=== PATIENT | male | born 1990 | race Caucasian/White ===

== ENCOUNTER 2020-01-05 07:55 | Day surgery (SDC) | payer BC ==
[~2020-01-05] VITALS: Ht 170.2 cm; Wt 65.0 kg
[2020-01-05] MEDS ORDERED: ONDANSETRON 2MG/ML, 2ML IVPush ONE (08:30)
[2020-01-05] MEDS ORDERED: SODIUM CHLORIDE 0.9% 1,000ML IVBOLUS ONE (08:30)
[2020-01-05] MEDS ORDERED: MORPHINE SULFATE 4 MG/ML, 1ML ONE ×2 (08:42→10:13)
[2020-01-05] MEDS ORDERED: ONDANSETRON 2MG/ML, 2ML ONE ×3 (08:42→11:23)
[2020-01-05] MEDS: MORPHINE SULFATE 4 MG/ML, 1ML IVPush PRN ×2 (08:44→10:18)
--- NOTE | 2020-01-05 09:02 | NUR ---
PT MOVED TO 18 AT THIS TIME. NS INFUSING. VSS. PT'S AOX4. RESPS EVEN AND UNLABORED.
--- NOTE | 2020-01-05 09:02 | NUR ---
PT WITH C/O RLQ PAIN RATED 9/10, REPRODUCABLE. PT C/O N/V. INITIALLY HAD C/O COUGH, NOW DENIES. PT TO RM 18
[2020-01-05 09:10] LABS: ALBUMIN 4.6 g/dL (3.4-5.0); ANION GAP 7 mmol/L (5-15); CALCIUM 9.4 mg/dL (8.5-10.1); CHLORIDE 104 mmol/L (98-107)
[2020-01-05 09:14] LABS: ALANINE AMINOTRANSFERASE 22 U/L (12-78); ALKALINE PHOSPHATASE 94 U/L (45-117); BILIRUBIN,TOTAL 1.1 mg/dL (0.2-1.0); CREATININE 1.23 mg/dL (0.7-1.3)
--- NOTE | 2020-01-05 09:18 | NUR ---
lab called and will be redrawing pt
[2020-01-05 09:32] LABS: MICROSCOPIC INDICATED
[2020-01-05] MEDS ORDERED: OMNIPAQUE 350 MG/ML, 100ML BOTTLE ONE (09:37)
[2020-01-05 09:39] LABS: CULTURE INDICATED? NO
--- NOTE | 2020-01-05 09:49 | NUR ---
LAB AT BEDSIDE TO RE-DRAW AT THIS TIME.
[2020-01-05 09:56] LABS: MEAN CORPUSCULAR HEMOGLOBIN 30.1 pg (27.5-34.5); MEAN CORPUSCULAR HGB CONC 34.1 g/dL (33.2-36.2); MEAN CORPUSCULAR VOLUME 88.2 fL (81-97); MEAN PLATELET VOLUME 6.8 fL (7.4-10.4); PLATELET COUNT 261 x10^3/uL (130-400); RED BLOOD COUNT 4.73 x10^6/uL (4.38-5.82); RED CELL DISTRIBUTION WIDTH 12.9 % (9.4-14.8)
[2020-01-05] MEDS ORDERED: CEFOTETAN PMX 1GM/50ML 50 ML IV ONE (10:00)
--- NOTE | 2020-01-05 10:07 | NUR ---
lillie rodriguez spoke with dr batista
[2020-01-05 10:09] LABS: MD YES
[2020-01-05 10:11] LABS: BAND#(MANUAL) 1.07 x10^3/uL; BANDS%(MANUAL) 6 % (0-7); LYMPHS% (MANUAL) 5 % (22-44); MONOS#(MANUAL) 0.54 x10^3/uL (0.3-2.7); MONOS% (MANUAL) 3 % (2-9); SEG#(MANUAL) 15.39 x10^3/uL (1.8-6.8); SEGS% (MANUAL) 86 % (42-75)
[2020-01-05 10:12] LABS: <PLATELET ESTIMATE> ADEQUATE; <PLT MORPHOLOGY> NORMAL PLT MORPH
[2020-01-05] MEDS ORDERED: CEFOTETAN PMX 1GM/50ML 50 ML ONE (10:13)
--- NOTE | 2020-01-05 10:22 | NUR ---
PT MEDICATED PER EMAR. PT TOLERATED WELL. ABX INFUSING AT THIS TIME. NO BC NEEDED PER PA.
--- NOTE | 2020-01-05 10:28 | NUR ---
WARM BLANCKET GIVEN AT THIS TIME. URINAL AT BEDSIDE PER REQUEST.
[2020-01-05 10:31] LABS: <RBC MORPHOLOGY> NORMAL
--- NOTE | 2020-01-05 11:10 | NUR ---
REPORT GIVEN TO EMI CORE ANALYST. ALL QUESTIONS ANSWERED.
[2020-01-05] MEDS ORDERED: BUPIVACAINE/PF-EPI 0.5% 1:200K ONE (11:18)
[2020-01-05] MEDS ORDERED: MIDAZOLAM 1 MG/ML, 2ML ONE (11:19)
[2020-01-05] MEDS ORDERED: PROPOFOL 50 ML ONE (11:19)
[2020-01-05] MEDS ORDERED: FENTANYL PF 250 MCG/5ML ONE (11:20)
[2020-01-05] MEDS ORDERED: KETOROLAC 30 MG/1 ML ONE (11:23)
[2020-01-05] MEDS ORDERED: ROCURONIUM 10MG/ML,5ML ONE (11:30)
[2020-01-05] MEDS ORDERED: SUCCINYLCHOLINE 20 MG/ML, 10ML ONE (11:30)
[2020-01-05] MEDS ORDERED: BUPIVACAINE/PF-EPI 0.5% 1:200K INFIL ONE (11:45)
[2020-01-05] MEDS ORDERED: MORPHINE SULFATE 4 MG/ML, 1ML IVPush PRN (12:00)
[2020-01-05] MEDS ORDERED: DIPHENHYDRAMINE 50 MG/ML, 1ML IVPush PRN (12:00)
[2020-01-05] MEDS ORDERED: DIAZEPAM 5 MG/ML, 2ML IVPush PRN (12:00)
[2020-01-05] MEDS ORDERED: PROMETHAZINE 25 MG/ML, 1ML IV PRN (12:00)
[2020-01-05] MEDS ORDERED: EPHEDRINE 50 MG/ML, 1ML IM PRN (12:00)
[2020-01-05] MEDS ORDERED: EPHEDRINE 50 MG/ML, 1ML IVPush PRN (12:00)
[2020-01-05] MEDS ORDERED: ONDANSETRON ODT 8 MG PO PRN (12:00)
[2020-01-05] MEDS ORDERED: ONDANSETRON 2MG/ML, 2ML IV PRN (12:00)
[2020-01-05] MEDS ORDERED: FENTANYL PF 100 MCG/2ML IV PRN (12:00)
[2020-01-05] MEDS ORDERED: OXYcodone 5 MG/5 ML ORAL.SOL UDC PO PRN (12:00)
[2020-01-05] MEDS ORDERED: MEPERIDINE/PF 25MG/ML,1ML IVPush PRN (12:00)
[2020-01-05] MEDS ORDERED: MIDAZOLAM 1 MG/ML, 2ML IV PRN (12:00)
[2020-01-05] MEDS ORDERED: OXYcodone 5 MG/5 ML ORAL.SOL UDC ONE (13:53)
[2020-01-05 14:46] VITALS: BP 93/47
[2020-01-05] MEDS ORDERED: LACTATED RINGERS 1,000 ML IV SCH (15:00)
[2020-01-05] MEDS ORDERED: HYDROcodone/APAP 5/325 TABLET PO PRN (15:00)
[2020-01-05 16:25] VITALS: BP 90/48
[2020-01-05] MEDS ORDERED: HYDR-3240 PO (16:43)
[2020-01-05 17:27] VITALS: BP 85/51
== END 2020-01-05 18:23 | disposition home or self-care (01) ==
LOC: ED 09:18 → EDSTATUS 10:12 → EDIP 10:37 → UNDOADMOB 10:37 → EDIP 14:25 → 4NE 14:25 → UNDODISOB 18:19 → ED 18:23
PROVIDERS: ATTEND Emergency Medicine
DX: K35.80 Unspecified acute appendicitis (principal)
CPT/HCPCS: 36415; 44970; 74177; 80053; 81001; 85025; 88304; 96365; 96375; 96376; 99284; J0330; J1885; J2250; J2270; J2405; J2704; J3010; J3490; J7030; J7120; Q9967; G0378

== ENCOUNTER 2021-02-09 17:59 | Emergency (ER) | payer BC ==
[~2021-02-09] VITALS: Ht 167.6 cm; Wt 61.8 kg
[~2021-02-09 17:59] MED LIST: HYDR-2214 PO
--- NOTE | 2021-02-09 18:15 | NUR ---
triage: chest pain 6 of 10 that comes and goes, began today at lunch.
--- NOTE | 2021-02-09 18:36 | NUR ---
PT C/O OF SHARP CHEST PAIN STARTING AROUND 1300. PAIN WILL COME AND GO SO PT SAUGHT TO SEEK MEDICAL CARE. DENIES RADIATING PAIN, SOB, N/V, AND NUMBNESS OR TINGLING. PT ON CARDIAC/ SP02/ BP MONITORS. BED IN LOW POSITION, CALL LIGHT WITHIN REACH.
[2021-02-09] MEDS ORDERED: KETOROLAC 60 MG/2 ML ONE (19:58)
[2021-02-09] MEDS ORDERED: KETOROLAC 30 MG/1 ML IM ONE (20:00)
--- NOTE | 2021-02-09 20:04 | NUR ---
PT IS CURRENTLY RESTING IN BED. VSS. BED IN LOW POSITION. CALL LIGHT WITHIN REACH. PT IN NAD. ATTACHED TO MONITORS
[2021-02-09 20:23] LABS: BASOPHILS % (AUTO) 1 % (0-1); EOSINOPHILS % (AUTO) 4 % (1-7); LYMPHOCYTES % (AUTO) 21 % (22-44); MEAN CORPUSCULAR HEMOGLOBIN 29.9 pg (27.5-34.5); MEAN CORPUSCULAR HGB CONC 35.1 g/dL (33.2-36.2); MEAN PLATELET VOLUME 7.4 fL (7.4-10.4); MONOCYTES % (AUTO) 7 % (2-9); NEUTROPHILS % (AUTO) 67 % (42-75); PLATELET COUNT 122 x10^3/uL (130-400); RED CELL DISTRIBUTION WIDTH 12.5 % (9.4-14.8)
[2021-02-09 20:25] LABS: MD NO
[2021-02-09 20:36] LABS: ALANINE AMINOTRANSFERASE 21 U/L (12-78); ALBUMIN 4.7 g/dL (3.4-5.0); ANION GAP 4 mmol/L (5-15); CALCIUM 9.2 mg/dL (8.5-10.1); CHLORIDE 106 mmol/L (98-107); CREATININE 0.89 mg/dL (0.7-1.3)
[2021-02-09 20:40] LABS: ALKALINE PHOSPHATASE 90 U/L (45-117); BILIRUBIN,TOTAL 0.6 mg/dL (0.2-1.0); TOTAL PROTEIN 8.1 g/dL (6.4-8.2); TROPONIN I < 0.015 ng/mL (0.000-0.045)
[2021-02-09 20:58] VITALS: BP 121/73
== END 2021-02-09 21:36 | disposition home or self-care (01) ==
LOC: ED 21:20
DX: R07.89 Other chest pain (principal)
CPT/HCPCS: 36415; 71045; 80053; 84484; 85025; 93005; 96372; 99285; J1885